=== PATIENT | female | born 1970 | race Hispanic/Latino ===

== ENCOUNTER → 2019-06-15 | Outpatient (CLI) | payer OTHER | END | disposition home or self-care (01) | LOC: RAH 10:24 | PROVIDERS: ATTEND Internal Medicine Cardiovascular Disease | DX: Z13.6 Encounter for screening for cardiovascular disorders (principal) | CPT/HCPCS: 75571 ==

== ENCOUNTER 2021-05-24 00:03 | Emergency (ER) | payer OTHER ==
[~2021-05-24] VITALS: Ht 160 cm; Wt 75.3 kg
[2021-05-24 00:57] LABS: APPEARANCE,URINE Cloudy (CLEAR); BILIRUBIN,URINE Negative (NEGATIVE); COLOR,URINE Yellow (YELLOW); GLUCOSE, URINE (UA) Negative (NEGATIVE); KETONES,URINE Negative (NEGATIVE); LEUKOCYTE ESTERASE ,URINE Large (NEGATIVE); NITRATE,URINE Negative (NEGATIVE); OCCULT BLOOD,URINE Moderate (NEGATIVE); PH,URINE 5.5 (5.0-8.0); PROTEIN,URINE POS 1+ mg/dL (NEGATIVE); UROBILINOGEN,URINE 0.2 mg/dL (0.2-1.0)
[2021-05-24 01:09] LABS: BACTERIA,URINE Moderate /HPF (None Seen); SQUAMOUS EPITHELIAL CELL,UR Few /HPF (0-2); WBC,URINE 51-100 /HPF (0-1)
[2021-05-24] MEDS ORDERED: PHEN-847 PO (01:13)
[2021-05-24] MEDS ORDERED: CEPH500B PO (01:13)
[2021-05-24 01:15] VITALS: BP 145/72
[2021-05-24] MEDS ORDERED: PHENAZOPYRIDINE HCL 200 MG TABLET PO ONE (01:30)
[2021-05-24] MEDS ORDERED: CEFTRIAXONE 1G VIAL IVP ONE (01:30)
== END 2021-05-24 01:47 | disposition home or self-care (01) ==
LOC: EDH 00:03
DX: N39.0 Urinary tract infection, site not specified (principal); I10 Essential (primary) hypertension; Z98.890 Other specified postprocedural states
CPT/HCPCS: 81001; 87077; 87088; 87186; 96374; 99283; J0696

== ENCOUNTER → 2024-11-20 | Outpatient (CLI) | payer OTHER ==
[~2024-11-20] MED LIST: CEPH500B PO; PHEN-847 PO
== END | disposition home or self-care (01) ==
LOC: SHCH 13:07
PROVIDERS: ATTEND Student in an Organized Health Care Education/Training Program
DX: I08.0 Rheumatic disorders of both mitral and aortic valves (principal); I10 Essential (primary) hypertension
CPT/HCPCS: 93306